=== PATIENT | female | born 1985 | race Caucasian/White ===

== ENCOUNTER → 2020-11-03 | Outpatient (CLI) | payer OTHER ==
[~2020-11-03] MED LIST: BACTRIM DS TAB1 EACH PO; CLEOCIN HCL300 MG PO; ECOTRIN81 MG PO; PRENATAL VITAM1 EAC8 PO; ZANTAC150 MG PO
== END ==
LOC: US 10-25 10:15
DX: R10.13 Epigastric pain (principal); K83.8 Other specified diseases of biliary tract
CPT/HCPCS: 76700

== ENCOUNTER → 2020-12-29 | Outpatient (CLI) | payer OTHER | LOC: NM 12:41 | DX: R10.11 Right upper quadrant pain (principal) | CPT/HCPCS: 78226; A9537 ==

== ENCOUNTER 2021-03-28 08:33 | Emergency (ER) | payer OTHER ==
[2021-03-28] MEDS ORDERED: NAPROSYN500 MG PO (10:04)
== END 2021-03-28 10:30 | disposition home or self-care (01) ==
LOC: ER1 08:33
DX: M79.602 Pain in left arm (principal); F17.200 Nicotine dependence, unspecified, uncomplicated
CPT/HCPCS: 96372; 99283; J1100; J1885

== ENCOUNTER → 2021-10-07 | Outpatient (CLI) | payer OTHER ==
[~2021-10-07] MED LIST changes: +NAPROSYN500 MG PO
== END ==
LOC: US 14:08
DX: E04.2 Nontoxic multinodular goiter (principal)
CPT/HCPCS: 76536

== ENCOUNTER 2021-12-23 12:59 | Emergency (ER) | payer OTHER ==
[2021-12-23 15:47] LABS: RED BLOOD COUNT 4.16 M/UL (4.00-5.10); WHITE BLOOD COUNT 13.7 K/UL (4.5-11.0)
[2021-12-23 16:07] LABS: BUN/CREATININE RATIO 12 (0-10)
[2021-12-23] MEDS ORDERED: AMOX TR-K CLV1 EAC4 PO (17:53)
[2021-12-23] MEDS ORDERED: NAPROSYN500 MG PO (17:54)
== END 2021-12-23 18:00 | disposition home or self-care (01) ==
LOC: ER1 12:59
PROVIDERS: Physician Assistant
DX: K04.7 Periapical abscess without sinus (principal); M06.9 Rheumatoid arthritis, unspecified; J45.909 Unspecified asthma, uncomplicated; F17.200 Nicotine dependence, unspecified, uncomplicated
CPT/HCPCS: 70487; 80053; 85025; 96374; 96375; 99284; J0295; J1885; Q9967